=== PATIENT | male | born 1960 | race Caucasian/White ===

== ENCOUNTER 2019-09-04 06:57 | Day surgery (SDC) | payer OTHER ==
[2019-08-31 08:40] LABS: BASOPHILS % (AUTO) 0.7 % (0.0-2.0); EOSINOPHILS % (AUTO) 3.7 % (1.0-6.0); HEMATOCRIT 44.7 % (41-53); LYMPHOCYTES % (AUTO) 33.1 % (22.0-44.0); MEAN CORPUSCULAR HEMOGLOBIN 32.1 pg (26.0-34.0); MEAN CORPUSCULAR HGB CONC 33.4 G/dL (31.0-37.0); MEAN CORPUSCULAR VOLUME 96 fL (80-100); MONOCYTES # (AUTO) 0.4 K/uL (0.1-1.0); MONOCYTES % (AUTO) 7.1 % (2.0-9.0); NEUTROPHILS # (AUTO) 3.4 K/uL (1.8-7.7); NEUTROPHILS % (AUTO) 55.4 % (40.0-70.0); PLATELET COUNT (AUTO) 186 K/uL (150-450); RED BLOOD CELL COUNT(AUTO) 4.66 MIL/uL (4.50-5.90); RED CELL DISTRIBUTION WIDTH 13.3 % (11.5-14.5)
[2019-08-31 08:58] LABS: ANION GAP 9 mmol/L (8-16); CARBON DIOXIDE 29 mmol/L (22-29); CHLORIDE 106 mmol/L (98-107); GLOMERULAR FILTR. RATE CALC > 60 mL/min (>60); GLUCOSE,RANDOM 121 mg/dL (70-110); POTASSIUM 4.2 mmol/L (3.5-5.1); SODIUM SERUM 144 mmol/L (136-145); UREA NITROGEN, BLOOD 16 mg/dL (7-18)
[2019-08-31 09:25] LABS: PROTHROMBIN TIME 10.3 SEC (9.4-11.6)
[~2019-09-04] VITALS: Ht 180.3 cm; Wt 95.6 kg
[~2019-09-04 06:57] MED LIST: AMLO10TA7 PO; BENA40TA67 PO; CeFAZolin 2 GM/DEXTROSE 50 ML IV ONE; FLUT1BLS8 PO; LEVO175T4 PO; RINGERS SOLUTION,LACTATED 1,000 ML IV ONE; TRAM50TA4 PO
[2019-09-04] MEDS ORDERED: GLYCOPYRROLATE 0.2 MG/ML VIAL IM ONE (06:58)
[2019-09-04] MEDS ORDERED: NEOSTIGMINE METHYLSULFATE 1 MG/ML 10 ML VIAL IVP ONE (06:58)
[2019-09-04] MEDS ORDERED: LIDOCAINE/PF 2% 5 ML VIAL IM ONE (06:58)
[2019-09-04] MEDS ORDERED: PROPOFOL 1% 20 ML VIAL IVP ONE (06:58)
[2019-09-04] MEDS ORDERED: ALBUTEROL SULFATE HFA 90 MCG/PUFF 8 GM INHALER IH ONE (06:58)
[2019-09-04] MEDS ORDERED: MIDAZOLAM HCL 2 MG/2 ML VIAL IVP ONE (06:58)
[2019-09-04] MEDS ORDERED: FentaNYL CITRATE-PF 100 MCG/2 ML VIAL IVP ONE (06:58)
[2019-09-04] MEDS ORDERED: DEXAMETHASONE SOD PHOS 4 MG/ML VIAL IVP ONE (06:58)
[2019-09-04] MEDS ORDERED: ONDANSETRON HCL 4 MG/2 ML VIAL IVP ONE (06:58)
[2019-09-04] MEDS ORDERED: ROCURONIUM BROMIDE 10 MG/ML 5 ML VIAL IVP ONE (06:58)
[2019-09-04] MEDS ORDERED: RINGERS SOLUTION,LACTATED 1,000 ML IV ONE ×2 (07:30→09:07)
[2019-09-04] MEDS ORDERED: CeFAZolin 2 GM/DEXTROSE 50 ML IV ONE (07:30)
[2019-09-04] MEDS ORDERED: BUPIVACAINE/EPI/PF 0.5% 30 ML VIAL ONE (07:35)
[2019-09-04] MEDS ORDERED: BUPIVACAINE LIPOSOME/PF 1.3%-13.3MG/ML SUSPENSION 10 ML VIAL INJ ONE (07:45)
[2019-09-04] MEDS ORDERED: VANCOMYCIN HCL 1 GM/VIAL ONE (08:55)
[2019-09-04] MEDS ORDERED: MEPERIDINE-PF 25 MG/ML VIAL IVP PRN (09:00)
[2019-09-04] MEDS ORDERED: HYDROmorphone 2 MG/ML SYRINGE IVP PRN (09:00)
[2019-09-04] MEDS ORDERED: FentaNYL CITRATE-PF 100 MCG/2 ML VIAL IVP PRN (09:00)
[2019-09-04] MEDS ORDERED: ACETAMINOPHEN 1000 MG/ISO-OSM 100 ML IV STA (10:03)
[2019-09-04] MEDS ORDERED: OXYGEN THERAPY IH SCH (20:00)
== END 2019-09-04 13:30 | disposition home or self-care (01) ==
LOC: SURGERY 06:57
PROVIDERS: ATTEND Orthopaedic Surgery Orthopaedic Surgery of the Spine
DX: M48.061 Spinal stenosis, lumbar region without neurogenic claudication (principal); I10 Essential (primary) hypertension; J45.909 Unspecified asthma, uncomplicated; E03.9 Hypothyroidism, unspecified; Z11.59 Encounter for screening for other viral diseases; Z79.899 Other long term (current) drug therapy; Z79.01 Long term (current) use of anticoagulants
CPT/HCPCS: 36415; 63047; 80048; 85025; 85610; 85730; 93005; C1716; J0131; J0690 ×2; J1100; J1170; J2250; J2405; J2704; J3010; J3370; J3490 ×4; J7120; U0003; J3535